=== PATIENT | male | born 1965 | race Caucasian/White ===

== ENCOUNTER 2020-11-04 14:38 | Emergency (ER) | payer OTHER ==
[~2020-11-04] VITALS: Ht 180.3 cm; Wt 102.5 kg
== END 2020-11-04 20:01 | disposition home or self-care (01) ==
LOC: ER 14:38
DX: E86.0 Dehydration (principal); R11.2 Nausea with vomiting, unspecified; Z03.818 Encounter for observation for suspected exposure to other biological agents ruled out

== ENCOUNTER 2022-07-30 21:07 | Emergency (ER) | payer OTHER ==
[~2022-07-30] VITALS: Ht 180.3 cm; Wt 114.3 kg
== END 2022-07-30 22:45 | disposition home or self-care (01) ==
LOC: ER 21:07
DX: R25.2 Cramp and spasm (principal)